=== PATIENT | male | born 1945 | race Caucasian/White ===

== ENCOUNTER → 2024-11-16 11:12 | Outpatient (REF) | payer OTHER, SELFPAY | LOC: HWRAD 11:12 | PROVIDERS: ATTENDING PHYSICIAN Internal Medicine Critical Care Medicine; FAMILY PHYSICIAN Student in an Organized Health Care Education/Training Program | DX: R91.8 Other nonspecific abnormal finding of lung field (principal) | CPT/HCPCS: 71250 ==

== ENCOUNTER → 2024-12-07 07:28 | Outpatient (REF) | payer OTHER, SELFPAY ==
[2024-12-07] VITALS (12 sets, daily range): BP systolic 56–165; BP diastolic 57–96
[2024-12-07 07:59] LABS: INR 0.93; PT 13.0 Sec (11.4-14.6)
[2024-12-07 08:00] LABS: Hematocrit 42.7 % (39.0-52.0); Hemoglobin 14.7 g/dL (13.0-18.0); Mean Corp Hgb Conc. 34.4 g/dL (33.0-37.0); Mean Corpuscular Volume 91.4 fL (80.0-94.0); Red Cell Dist. Width 13.0 % (11.5-14.5)
[2024-12-07 10:03] LABS: Platelet Count 145 10^3/uL (130-400)
== END ==
LOC: RADI 07:28
PROVIDERS: ATTENDING PHYSICIAN Internal Medicine Critical Care Medicine; FAMILY PHYSICIAN Student in an Organized Health Care Education/Training Program
DX: D19.0 Benign neoplasm of mesothelial tissue of pleura (principal)
CPT/HCPCS: 32400; 32408; 36415; 71045; 85027; 85610; 87015; 87116; 87206; 88305; 88333; 88334; 88341; 88342; 99152; 99153